=== PATIENT | female | born 1985 | race Caucasian/White ===

== ENCOUNTER → 2018-07-28 | Outpatient (REF) | payer SELFPAY ==
[2018-07-28 16:39] LABS: INFLUENZA A AMPLIFICATION NEGATIVE (NEGATIVE); INFLUENZA B AMPLIFICATION NEGATIVE (NEGATIVE)
== END ==
LOC: M LAB REF 15:34
PROVIDERS: ATTEND Physician Assistant
DX: J11.1 Influenza due to unidentified influenza virus with other respiratory manifestations (principal)

== ENCOUNTER → 2021-04-16 | Outpatient (REF) | payer SELFPAY ==
[~2021-04-16] MED LIST: CLAR10CA3 PO; COLA100C5 PO; IBUP-1022 PO; OMEP10CASR PO; PERC5TAB12 PO; PRENTAB9 PO
[2021-04-16 17:00] LABS: HEMOGLOBIN 13.4 g/dl (12.0-15.5); MEAN CORPUSCULAR HEMOGLOBIN 30.6 pg (27.0-33.0); MEAN CORPUSCULAR HGB CONC 34.4 g/dl (32.0-36.5); PLATELET COUNT, AUTOMATED 262 10^3/uL (150-450); RED BLOOD COUNT 4.38 10^6/uL (4.00-5.40)
[2021-04-16 18:22] LABS: HCG, SERUM QUANTITATIVE 17527 MIU/ML; HEPATITIS C VIRUS ABY INDEX 0.1 INDEX (<0.8); HIV 1&2 SCREEN CENTAUR NEGATIVE (NEGATIVE)
[2021-04-16 20:16] LABS: HEMOGLOBIN A1c 5.5 %
== END ==
LOC: M LAB REF 16:36
PROVIDERS: ATTEND Advanced Practice Midwife
DX: O36.80X0 Pregnancy with inconclusive fetal viability, not applicable or unspecified (principal); Z32.01 Encounter for pregnancy test, result positive; Z3A.00 Weeks of gestation of pregnancy not specified

== ENCOUNTER → 2021-04-23 | Outpatient (CLI) | payer MEDICAID ==
[2021-04-23 17:12] LABS: BASO # 0.1 10^3/uL (0.0-0.2); BASO % 0.3 % (0.0-1.0); EOS # 0.3 10^3/uL (0.0-0.5); HEMATOCRIT 37.1 % (36.0-47.0); HEMOGLOBIN 12.4 g/dl (12.0-15.5); LYMPH % 13.5 % (24.0-44.0); MEAN CORPUSCULAR HEMOGLOBIN 30.5 pg (27.0-33.0); MEAN CORPUSCULAR HGB CONC 33.4 g/dl (32.0-36.5); MEAN CORPUSCULAR VOLUME 91.4 fl (80.0-96.0); MONO # 0.8 10^3/uL (0.0-0.8); MONO % 5.5 % (2.0-8.0); NEUTROPHILS # 11.7 10^3/uL (1.5-8.5); NEUTROPHILS % 77.6 % (36.0-66.0); PLATELET COUNT, AUTOMATED 250 10^3/uL (150-450); RED BLOOD COUNT 4.06 10^6/uL (4.00-5.40); WHITE BLOOD COUNT 15.1 10^3/uL (4.0-10.0)
== END ==
LOC: M LAB 15:25
PROVIDERS: ATTEND Advanced Practice Midwife
DX: Z34.03 Encounter for supervision of normal first pregnancy, third trimester (principal); Z3A.00 Weeks of gestation of pregnancy not specified

== ENCOUNTER → 2021-05-07 | Outpatient (REF) | payer MEDICAID | LOC: M LAB REF 16:36 | PROVIDERS: ATTEND Advanced Practice Midwife | DX: Z34.83 Encounter for supervision of other normal pregnancy, third trimester (principal); Z3A.00 Weeks of gestation of pregnancy not specified ==

== ENCOUNTER 2021-05-15 16:44 | Outpatient (CLI) | payer MEDICAID ==
[~2021-05-15] VITALS: Ht 167.6 cm; Wt 115.1 kg
[2021-05-15] MEDS ORDERED: PRENTAB9 PO (16:55)
[2021-05-15] MEDS ORDERED: CLAR10CA3 PO (16:55)
[2021-05-15 17:04] VITALS: BP 116/59
[2021-05-15 17:28] VITALS: BP 139/73
[2021-05-15 17:45] VITALS: BP 132/66
[2021-05-15 17:58] LABS: HEMATOCRIT 37.6 % (36.0-47.0); HEMOGLOBIN 13.1 g/dl (12.0-15.5); MEAN CORPUSCULAR HEMOGLOBIN 31.1 pg (27.0-33.0); MEAN CORPUSCULAR HGB CONC 34.8 g/dl (32.0-36.5); MEAN CORPUSCULAR VOLUME 89.3 fl (80.0-96.0); PLATELET COUNT, AUTOMATED 226 10^3/uL (150-450); RED BLOOD COUNT 4.21 10^6/uL (4.00-5.40); WHITE BLOOD COUNT 15.2 10^3/uL (4.0-10.0)
[2021-05-15 18:21] LABS: CREATININE,RANDOM URINE 77.1 MG/DL; TOTAL PROTEIN,RANDOM URINE 12.9 MG/DL (0.0-12.0)
[2021-05-15 18:24] LABS: ALT/SGPT 23 U/L (12-78); BILIRUBIN,TOTAL 0.2 MG/DL (0.2-1.0); CREATININE FOR GFR 0.39 MG/DL (0.55-1.30); GLOMERULAR FILTRATION RATE > 60.0 (>60); LDH LACTATE DEHYDROGENASE 166 U/L (84-246); URIC ACID 3.3 MG/DL (2.6-6.0)
--- NOTE | 2021-05-15 19:16 | IPN ---
PROGRESS NOTE DATE: 05/15/2021 SUBJECTIVE: Gi is a 36-year-old, 1, para 0, at 40 and 3/7 weeks gestation, EDC of 05/12/21 based on LMP and third trimester ultrasound. She presents to labor and delivery following a routine visit in the office at [facility] where she was noted to have mildly elevated blood pressure and was sent here for further evaluation. She denies headache, visual disturbances, epigastric pain or right upper quadrant discomfort. She denies contractions, vaginal bleeding and leakage of fluid. The fetus has been active. Her care was initiated in the third trimester at [facility]. complicated by advanced maternal age and late to care. PAST MEDICAL HISTORY: Childhood varicella. PAST SURGICAL HISTORY: None. FAMILY HISTORY: COPD, psychiatric diagnoses. SOCIAL HISTORY: The patient is . She is a homemaker. She is a former smoker. She denies alcohol and drug use. No history of any sexually transmitted infections. She denies history of abuse. ALLERGIES: Amoxicillin and Robitussin. CURRENT MEDICATIONS: vitamin, Claritin and occasional [id number] antiacid medications. OBSTETRIC LABS: B positive, antibody screen negative, rubella immune, VDRL nonreactive. Urine culture: No growth. Hep B surface antigen negative. HIV negative and hep C nonreactive. She is GBS positive. Her gestational diabetic screening was 139. She did not have any noninvasive testing done. OBJECTIVE: Temperature 98.4, pulse 79, BP 116/59, 139/73, 132/66. The heart rate is 135 with moderate variability, positive accelerations, no decelerations. There is no pattern of contractions. I did perform a CBC that returned a hemoglobin of 13.1, hematocrit 37.6 and platelets 226. Her preeclamptic labs are normal. Her creatinine is 0.39, AST 17, ALT 23, LDH 166 and uric acid is 3.3. Her spot urine is 0.17. ASSESSMENT: Intrauterine at 40 and 3/7 weeks, heart rate category 1. Normotensive BPs, no evidence of gestational hypertension or preeclampsia at this time. Advanced maternal age. PLAN: Discharge the patient home. I have scheduled her for induction of labor at 41 weeks gestation. I have reviewed signs and symptoms of active labor, movement counts and danger signs. I have reviewed risks, benefits and alternatives to induction of labor today versus 41 weeks. The patient is requesting the opportunity to go into labor spontaneously and declines induction of labor today.
== END 2021-05-15 18:40 | disposition home or self-care (01) ==
LOC: M LDO 16:44
PROVIDERS: ATTEND Advanced Practice Midwife
DX: O26.893 Other specified pregnancy related conditions, third trimester (principal); O09.513 Supervision of elderly primigravida, third trimester; Z3A.40 40 weeks gestation of pregnancy

== ENCOUNTER 2021-05-19 08:29 | Inpatient (IN) | payer OTHER ==
[~2021-05-19] VITALS: Ht 167.6 cm; Wt 118.7 kg
[2021-05-19] VITALS (13 sets, daily range): BP systolic 108–142; BP diastolic 55–91
[~2021-05-19 08:29] MED LIST changes: -COLA100C5 PO; -IBUP-1022 PO; -OMEP10CASR PO; -PERC5TAB12 PO
[2021-05-19] MEDS ORDERED: OMEP10CASR PO (09:11)
[2021-05-19] MEDS ORDERED: HOME MED LIST COMPLETE! XX SCH (09:15)
[2021-05-19 09:53] LABS: HEMATOCRIT 35.5 % (36.0-47.0); HEMOGLOBIN 12.2 g/dl (12.0-15.5); MEAN CORPUSCULAR HEMOGLOBIN 31.2 pg (27.0-33.0); MEAN CORPUSCULAR HGB CONC 34.4 g/dl (32.0-36.5); MEAN CORPUSCULAR VOLUME 90.8 fl (80.0-96.0); PLATELET COUNT, AUTOMATED 225 10^3/uL (150-450); RED BLOOD COUNT 3.91 10^6/uL (4.00-5.40)
[2021-05-19] MEDS ORDERED: LR 1,000 ML IV PRN (10:45)
[2021-05-19] MEDS ORDERED: OXYTOCIN DRIP 30 UNITS in IV 1 EA IV PRN ×4 (10:45)
[2021-05-19] MEDS ORDERED: CARBOPROST TROMETHAMINE 250 MCG/ML AMP IM PRN (10:45)
[2021-05-19] MEDS ORDERED: miSOPROStol 50MCG 1/2 TABLET PO ONE ×2 (10:45→15:25)
[2021-05-19] MEDS ORDERED: TRANEXAMIC ACID INJection 1,000 MG in NS 100 ML IV PRN (10:45)
[2021-05-19] MEDS ORDERED: METHYLERGONOVINE MALEATE 0.2 MG/ML VIAL (J2210) IM PRN (10:45)
[2021-05-19] MEDS ORDERED: LACTATED RINGER'S 1000 ML IV PRN (10:45)
[2021-05-19] MEDS ORDERED: LR 1,000 ML IV ONE (11:05)
[2021-05-19 11:07] LABS: GC DNA AMPLIFICATION NEGATIVE (NEGATIVE)
[2021-05-19] MEDS ORDERED: OXYTOCIN DRIP 30 UNITS in IV 1 EA IV SCH (20:45)
[2021-05-19] MEDS ORDERED: CLINDAMYCIN 900 MG in IV 1 EA IV SCH (21:00)
[2021-05-19] MEDS ORDERED: AZITHROMYCIN INJ 500 MG, VIAL MATE ADAPTER 1 EACH in NS 250 ML IV ONE (21:55)
[2021-05-19] MEDS ORDERED: BICITRA 30ML SOLN UDC PO ONE (21:55)
[2021-05-19] MEDS ORDERED: GENTAMICIN 400 MG in D5W 50 ML IV ONE (22:15)
[2021-05-19] MEDS ORDERED: MORPHINE PRES-FREE INJ 10 MG/10 ML VIAL (J2274) As Ordered ONE (22:39)
[2021-05-19] MEDS ORDERED: diphenhydrAMINE 50MG/ML VIAL (J1200) IV PRN (22:55)
[2021-05-19] MEDS ORDERED: ONDANSETRON 4MG/2ML VIAL IV PRN (22:55)
[2021-05-19] MEDS ORDERED: NALBUPHINE HCL 10 MG/ML AMP (J2300) IV PRN (22:55)
[2021-05-19] MEDS ORDERED: METOCLOPRAMIDE INJ 10MG/2ML VIAL (J2765 PER 1) IV PRN (22:55)
[2021-05-19] MEDS ORDERED: NALOXONE INJ 0.4MG/1ML VIAL (J2310 PER 1MG) IV PRN ×2 (22:55)
[2021-05-19] MEDS ORDERED: ONDANSETRON 4MG/2ML VIAL As Ordered ONE (23:13)
[2021-05-19] MEDS ORDERED: ePHEDrine SULFATE 25 MG/5 ML(5MG/ML) SYRINGE As Ordered ONE (23:13)
[2021-05-19] MEDS ORDERED: PHENYLephrine 500MCG 5ML (100MCG/ML) SYRINGE As Ordered ONE (23:13)
[2021-05-19] MEDS ORDERED: dexameTHASONE 4 MG/ML 1ML VIAL (J1100 PER 1MG) As Ordered ONE (23:13)
[2021-05-19] MEDS ORDERED: KETOROLAC 60MG 2ML VIAL As Ordered ONE (23:25)
[2021-05-20] VITALS (9 sets, daily range): BP systolic 111–139; BP diastolic 57–85
[2021-05-20] MEDS ORDERED: ONDANSETRON 4MG/2ML VIAL IV PRN ×2 (00:30→00:40)
[2021-05-20] MEDS ORDERED: SIMETHICONE 80MG CHEW TAB PO PRN (00:30)
[2021-05-20] MEDS ORDERED: MEASLES,MUMPS,RUBELLA VACCINE INJ (MMR-II) (90707) SC SCH (00:30)
[2021-05-20] MEDS ORDERED: RHOGAM 300 MCG (1500 IU) INJ (J2790) IM SCH (00:30)
[2021-05-20] MEDS ORDERED: oxyCODONE 5MG TAB PO PRN ×3 (00:30→00:40)
[2021-05-20] MEDS ORDERED: OXYTOCIN DRIP 30 UNITS in IV 1 EA IV SCH (00:30)
[2021-05-20] MEDS ORDERED: DOCUSATE SODIUM 100MG CAPSULE PO PRN (00:30)
[2021-05-20] MEDS ORDERED: NALBUPHINE HCL 10 MG/ML AMP (J2300) IV PRN (00:40)
[2021-05-20] MEDS ORDERED: LR 1,000 ML IV SCH (00:40)
[2021-05-20] MEDS ORDERED: fentaNYL 100 MCG/2 ML INJECTION (J3010) IV PRN (00:40)
[2021-05-20] MEDS ORDERED: OXYTOCIN 30 UNITS IN 0.9% NaCl 500ML IV BAG (J2590) As Ordered ONE (00:44)
[2021-05-20 02:24] LABS: ALBUMIN 2.2 GM/DL (3.2-5.2); ALT/SGPT 18 U/L (12-78); BILIRUBIN,TOTAL 0.1 MG/DL (0.2-1.0); BLOOD UREA NITROGEN 6 MG/DL (7-18); CALCIUM LEVEL 7.9 MG/DL (8.5-10.1); CARBON DIOXIDE LEVEL 28 MEQ/L (21-32); CHLORIDE LEVEL 107 MEQ/L (98-107); GLOMERULAR FILTRATION RATE > 60.0 (>60); GLUCOSE, FASTING 85 MG/DL (70-100); POTASSIUM SERUM 4.4 MEQ/L (3.5-5.1); SODIUM LEVEL 142 MEQ/L (136-145); TOTAL PROTEIN 5.4 GM/DL (6.4-8.2)
[2021-05-20] MEDS: ACETAMINOPHEN 500 MG TAB PO SCH ×4 (03:46→21:25)
[2021-05-20] MEDS: KETOROLAC 30 MG/ML 1ML VIAL IV SCH ×3 (06:15→18:12)
[2021-05-20] MEDS: PRENATAL VITAMINS CHEWABLE TABLET PO SCH (08:25)
[2021-05-20] MEDS ORDERED: BOOSTRIX/ADACEL VACCINE (DIPHTH/PERTUSS/ACELL/TETANUS) 0.5ML SYR IM ONE (09:00)
[2021-05-20] MEDS ORDERED: INFLUENZA QUADRIVALENT PF VACCINE 0.5ML SYRINGE IM ONE (09:00)
[2021-05-20] MEDS: ENOXAPARIN 60MG/0.6ML SYRINGE (J1650 PER 10MG) SC SCH (12:02)
[2021-05-21] MEDS: ACETAMINOPHEN 500 MG TAB PO SCH ×4 (02:09→20:02)
[2021-05-21] MEDS: IBUPROFEN 600MG TAB PO SCH ×4 (02:11→20:01)
[2021-05-21 02:13] VITALS: BP 116/55
[2021-05-21 06:27] VITALS: BP 144/67
[2021-05-21 07:28] LABS: HEMATOCRIT 34.8 % (36.0-47.0); HEMOGLOBIN 11.8 g/dl (12.0-15.5); MEAN CORPUSCULAR HGB CONC 33.9 g/dl (32.0-36.5); MEAN CORPUSCULAR VOLUME 91.3 fl (80.0-96.0); PLATELET COUNT, AUTOMATED 207 10^3/uL (150-450); RED BLOOD COUNT 3.81 10^6/uL (4.00-5.40); WHITE BLOOD COUNT 10.5 10^3/uL (4.0-10.0)
[2021-05-21] MEDS: PRENATAL VITAMINS CHEWABLE TABLET PO SCH (07:30)
[2021-05-21 09:56] VITALS: BP 137/76
[2021-05-21] MEDS: ENOXAPARIN 60MG/0.6ML SYRINGE (J1650 PER 10MG) SC SCH (11:46)
[2021-05-21] MEDS ORDERED: NICOTINE 14 MG/24 HR TRANSDERMAL TD PRN (13:00)
[2021-05-21 14:00] VITALS: BP 145/73
[2021-05-21 17:55] VITALS: BP 133/66
[2021-05-22] MEDS: IBUPROFEN 600MG TAB PO SCH ×2 (02:08→08:11)
[2021-05-22] MEDS: ACETAMINOPHEN 500 MG TAB PO SCH ×2 (02:08→08:10)
[2021-05-22 06:00] VITALS: BP 134/79
[2021-05-22] MEDS: PRENATAL VITAMINS CHEWABLE TABLET PO SCH (08:10)
[2021-05-22] MEDS ORDERED: COLA100C5 PO (10:51)
[2021-05-22] MEDS ORDERED: IBUP-1022 PO (10:51)
[2021-05-22] MEDS ORDERED: PERC5TAB12 PO (10:51)
[2021-05-22] MEDS: ENOXAPARIN 60MG/0.6ML SYRINGE (J1650 PER 10MG) SC SCH (12:04)
== END 2021-05-22 13:30 | disposition home or self-care (01) | DRG 540 ==
LOC: M LDI 08:29 → M OBS 05-20 02:13
PROVIDERS: ADMIT Obstetrics & Gynecology; ATTEND Obstetrics & Gynecology
PROC: 10D00Z1 Extraction of Products of Conception, Low, Open Approach (ICD-10-PCS; principal; 2021-05-19 22:42)
DX: O48.0 Post-term pregnancy (principal); Z37.0 Single live birth; Z3A.41 41 weeks gestation of pregnancy; E66.9 Obesity, unspecified; Z68.41 Body mass index [BMI] 40.0-44.9, adult; O99.214 Obesity complicating childbirth; Z88.8 Allergy status to other drugs, medicaments and biological substances; O09.523 Supervision of elderly multigravida, third trimester; O76 Abnormality in fetal heart rate and rhythm complicating labor and delivery; O77.0 Labor and delivery complicated by meconium in amniotic fluid

== ENCOUNTER → 2021-12-04 | Outpatient (CLI) | payer OTHER ==
[~2021-12-04] MED LIST changes: +COLA100C5 PO; +IBUP-1022 PO; +OMEP10CASR PO; +PERC5TAB12 PO
== END ==
LOC: M WHC 14:46
PROVIDERS: ATTEND Obstetrics & Gynecology
DX: Z53.9 Procedure and treatment not carried out, unspecified reason (principal)

== ENCOUNTER → 2021-12-26 | Outpatient (CLI) | payer OTHER | LOC: M RAD 15:59 | PROVIDERS: ATTEND Obstetrics & Gynecology | DX: Z34.92 Encounter for supervision of normal pregnancy, unspecified, second trimester (principal); Z3A.20 20 weeks gestation of pregnancy ==

== ENCOUNTER → 2022-01-02 | Outpatient (CLI) | payer OTHER | LOC: M LAB 14:26 | PROVIDERS: ATTEND Obstetrics & Gynecology | DX: Z53.9 Procedure and treatment not carried out, unspecified reason (principal) ==

== ENCOUNTER → 2022-01-11 | Outpatient (CLI) | payer OTHER ==
[2022-01-11 15:31] LABS: HEMATOCRIT 36.4 % (36.0-47.0); HEMOGLOBIN 12.8 g/dl (12.0-15.5); MEAN CORPUSCULAR HEMOGLOBIN 31.5 pg (27.0-33.0); MEAN CORPUSCULAR HGB CONC 35.2 g/dl (32.0-36.5); MEAN CORPUSCULAR VOLUME 89.7 fl (80.0-96.0); PLATELET COUNT, AUTOMATED 222 10^3/uL (150-450); RED BLOOD COUNT 4.06 10^6/uL (4.00-5.40); WHITE BLOOD COUNT 14.4 10^3/uL (4.0-10.0)
[2022-01-11 16:13] LABS: ALBUMIN 2.9 GM/DL (3.2-5.2); ALT/SGPT 15 U/L (12-78); BILIRUBIN,TOTAL 0.1 MG/DL (0.2-1.0); BLOOD UREA NITROGEN 6 MG/DL (7-18); CALCIUM LEVEL 9.2 MG/DL (8.5-10.1); CARBON DIOXIDE LEVEL 23 MEQ/L (21-32); CHLORIDE LEVEL 106 MEQ/L (98-107); CREATININE FOR GFR 0.39 MG/DL (0.55-1.30); GLOMERULAR FILTRATION RATE > 60.0 (>60); GLUCOSE, FASTING 90 MG/DL (70-100); POTASSIUM SERUM 3.9 MEQ/L (3.5-5.1); SODIUM LEVEL 136 MEQ/L (136-145); TOTAL PROTEIN 6.4 GM/DL (6.4-8.2)
[2022-01-11 21:16] LABS: GC DNA AMPLIFICATION NEGATIVE (NEGATIVE)
[2022-01-13 12:32] LABS: HIV 1&2 SCREEN CENTAUR NEGATIVE (NEGATIVE)
== END ==
LOC: M LAB 14:36
PROVIDERS: ATTEND Obstetrics & Gynecology
DX: Z34.92 Encounter for supervision of normal pregnancy, unspecified, second trimester (principal); Z3A.16 16 weeks gestation of pregnancy

== ENCOUNTER → 2022-03-14 | Outpatient (CLI) | payer OTHER | LOC: M WHC 13:06 | PROVIDERS: ATTEND Obstetrics & Gynecology | DX: Z36.2 Encounter for other antenatal screening follow-up (principal) ==

== ENCOUNTER 2022-04-22 15:25 | Outpatient (CLI) | payer OTHER ==
[~2022-04-22] VITALS: Ht 165.1 cm; Wt 123.1 kg
[~2022-04-22 15:25] MED LIST changes: -ASPI81CH33 PO
[2022-04-22 15:50] VITALS: BP 124/80
[2022-04-22] MEDS ORDERED: ASPI81CH33 PO (15:55)
[2022-04-22] MEDS ORDERED: PRENTAB9 PO (15:55)
[2022-04-22] MEDS ORDERED: HOME MED LIST COMPLETE! XX SCH (16:00)
[2022-04-22 17:58] VITALS: BP 131/69
== END 2022-04-22 18:00 | disposition home or self-care (01) ==
LOC: M LDO 15:25
PROVIDERS: ATTEND Obstetrics & Gynecology
DX: O36.8139 Decreased fetal movements, third trimester, other fetus (principal); O43.193 Other malformation of placenta, third trimester; O34.219 Maternal care for unspecified type scar from previous cesarean delivery; O09.513 Supervision of elderly primigravida, third trimester; Z3A.35 35 weeks gestation of pregnancy

== ENCOUNTER → 2022-04-22 | Outpatient (REF) | payer OTHER ==
[~2022-04-22] MED LIST changes: +ASPI81CH33 PO
== END ==
LOC: M PLALAB 14:28
PROVIDERS: ATTEND Obstetrics & Gynecology
DX: Z34.93 Encounter for supervision of normal pregnancy, unspecified, third trimester (principal); Z3A.00 Weeks of gestation of pregnancy not specified

== ENCOUNTER → 2022-04-24 | Outpatient (CLI) | payer OTHER ==
[~2022-04-24] MED LIST changes: +ASPI81CH33 PO
== END ==
LOC: M WHC 07:25
PROVIDERS: ATTEND Obstetrics & Gynecology
DX: O43.193 Other malformation of placenta, third trimester (principal); Z3A.37 37 weeks gestation of pregnancy

== ENCOUNTER → 2022-05-01 | Outpatient (CLI) | payer OTHER | LOC: M WHC 08:19 | PROVIDERS: ATTEND Obstetrics & Gynecology | DX: O43.193 Other malformation of placenta, third trimester (principal); Z3A.30 30 weeks gestation of pregnancy ==

== ENCOUNTER → 2022-05-14 | Outpatient (CLI) | payer OTHER ==
[~2022-05-14] MED LIST changes: +OMEP40CA5 PO
== END ==
LOC: M LABSMTC 09:06
PROVIDERS: ATTEND Anesthesiology
DX: Z01.818 Encounter for other preprocedural examination (principal)

== ENCOUNTER 2022-05-15 05:52 | Inpatient (IN) | payer OTHER ==
[~2022-05-15] VITALS: Ht 167.6 cm; Wt 124.1 kg
[2022-05-15] VITALS (8 sets, daily range): BP systolic 125–163; BP diastolic 67–78
[2022-05-15] MEDS ORDERED: LACTATED RINGER'S 1000 ML IV STA (06:04)
[2022-05-15] MEDS ORDERED: BICITRA 30ML SOLN UDC PO ONE ×2 (06:05→07:00)
[2022-05-15 06:41] LABS: HEMATOCRIT 37.2 % (36.0-47.0); HEMOGLOBIN 12.7 g/dl (12.0-15.5); MEAN CORPUSCULAR HEMOGLOBIN 29.8 pg (27.0-33.0); MEAN CORPUSCULAR HGB CONC 34.1 g/dl (32.0-36.5); MEAN CORPUSCULAR VOLUME 87.3 fl (80.0-96.0); PLATELET COUNT, AUTOMATED 251 10^3/uL (150-450); RED BLOOD COUNT 4.26 10^6/uL (4.00-5.40); WHITE BLOOD COUNT 12.7 10^3/uL (4.0-10.0)
[2022-05-15] MEDS ORDERED: LR 1,000 ML IV SCH ×2 (06:55→07:30)
[2022-05-15] MEDS ORDERED: LACTATED RINGER'S 1000 ML IV ONE (07:00)
[2022-05-15] MEDS ORDERED: CLINDAMYCIN 900 MG in IV 1 EA IV ONE (07:00)
[2022-05-15] MEDS ORDERED: **NOTE PATIENT COMMENT** MISC XX SCH (07:30)
[2022-05-15] MEDS ORDERED: MEPERIDINE INJ 25 MG/ML VIAL IV PRN (07:30)
[2022-05-15] MEDS ORDERED: diphenhydrAMINE 50MG/ML VIAL IV PRN (07:30)
[2022-05-15] MEDS ORDERED: METOCLOPRAMIDE INJ 10MG/2ML VIAL IV PRN ×2 (07:30)
[2022-05-15] MEDS ORDERED: oxyCODONE 5MG TAB PO PRN ×2 (07:30→10:20)
[2022-05-15] MEDS ORDERED: NALOXONE INJ 0.4MG/1ML VIAL IV PRN ×2 (07:30)
[2022-05-15] MEDS ORDERED: SLF 3 ML SYR IV SCH (07:30)
[2022-05-15] MEDS ORDERED: ONDANSETRON 4MG 2ML VIAL IV PRN ×2 (07:30→10:20)
[2022-05-15] MEDS ORDERED: fentaNYL 100 MCG/2 ML INJECTION IV PRN (07:30)
[2022-05-15] MEDS ORDERED: GENTAMICIN 400 MG in D5W 100 ML IV ONE (08:00)
[2022-05-15] MEDS ORDERED: METOCLOPRAMIDE INJ 10MG/2ML VIAL As Ordered ONE (09:47)
[2022-05-15] MEDS ORDERED: ROCURONIUM BROMIDE 50MG/5ML VIAL As Ordered ONE (09:47)
[2022-05-15] MEDS ORDERED: LIDOCAINE 2% W/EPINEPHRINE 20ML VIAL **PRES FREE As Ordered ONE (09:47)
[2022-05-15] MEDS ORDERED: OXYTOCIN 30UNITS IN 0.9% NaCl 500ML IV BAG As Ordered ONE (09:47)
[2022-05-15] MEDS ORDERED: ACETAMINOPHEN 1000MG 100ML IV BAG As Ordered ONE (09:47)
[2022-05-15] MEDS ORDERED: MORPHINE PRES-FREE INJ 10 MG/10 ML VIAL As Ordered ONE (09:47)
[2022-05-15] MEDS ORDERED: ONDANSETRON 4MG 2ML VIAL As Ordered ONE (09:47)
[2022-05-15] MEDS ORDERED: fentaNYL 100 MCG/2 ML INJECTION As Ordered ONE (09:47)
[2022-05-15] MEDS ORDERED: SUGAMMADEX SODIUM 500 MG/5 ML VIAL (BRIDION) As Ordered ONE (09:47)
[2022-05-15] MEDS ORDERED: MIDAZOLAM INJ 2MG/2ML VIAL (J2250 PER 1MG) As Ordered ONE (09:47)
[2022-05-15] MEDS ORDERED: KETOROLAC 60MG 2ML VIAL As Ordered ONE (09:47)
[2022-05-15] MEDS ORDERED: SODIUM BICARBONATE 8.4% INJ 50MEQ 50ML VIAL As Ordered ONE (09:47)
[2022-05-15] MEDS ORDERED: BUPIVACAINE HCL 0.25% 10ML VIAL INFIL PRN (10:00)
[2022-05-15] MEDS ORDERED: PROMETHAZINE 25 MG TAB PO PRN (10:20)
[2022-05-15] MEDS ORDERED: DOCUSATE SODIUM 100MG CAPSULE PO PRN (10:20)
[2022-05-15] MEDS ORDERED: RHOGAM 300MCG (1500IU) INJ IM SCH (10:20)
[2022-05-15] MEDS ORDERED: OXYTOCIN DRIP 30 UNITS in IV 1 EA IV SCH (10:20)
[2022-05-15] MEDS ORDERED: SIMETHICONE 80MG CHEW TAB PO PRN (10:20)
[2022-05-15] MEDS: ACETAMINOPHEN 500 MG TAB PO SCH ×3 (11:46→22:03)
[2022-05-15] MEDS: KETOROLAC 30 MG/ML 1ML VIAL IV SCH ×2 (17:09→22:04)
[2022-05-15] MEDS: ENOXAPARIN 40MG/0.4ML SYRINGE (J1650 PER 10MG) SC SCH (20:02)
[2022-05-15] MEDS ORDERED: ENOXAPARIN 30MG/0.3ML SYRINGE (J1650 PER 10MG) SC SCH (21:00)
[2022-05-16 02:00] VITALS: BP 156/74
[2022-05-16] MEDS: KETOROLAC 30 MG/ML 1ML VIAL IV SCH (03:10)
[2022-05-16] MEDS: ACETAMINOPHEN 500 MG TAB PO SCH ×4 (04:29→22:20)
[2022-05-16] MEDS: oxyCODONE 5MG TAB PO PRN ×3 (04:54→17:40)
[2022-05-16 06:00] VITALS: BP 134/62
[2022-05-16 06:51] LABS: HEMATOCRIT 27.8 % (36.0-47.0); MEAN CORPUSCULAR HEMOGLOBIN 29.5 pg (27.0-33.0); MEAN CORPUSCULAR HGB CONC 33.1 g/dl (32.0-36.5); MEAN CORPUSCULAR VOLUME 89.1 fl (80.0-96.0); PLATELET COUNT, AUTOMATED 203 10^3/uL (150-450); RED BLOOD COUNT 3.12 10^6/uL (4.00-5.40); WHITE BLOOD COUNT 12.4 10^3/uL (4.0-10.0)
[2022-05-16 07:05] LABS: HEMOGLOBIN 9.2 g/dl (12.0-15.5)
[2022-05-16 08:12] LABS: CREATININE FOR GFR 0.54 MG/DL (0.55-1.30); GLOMERULAR FILTRATION RATE > 60.0 (>60)
[2022-05-16] MEDS: IBUPROFEN 600MG TAB PO SCH ×3 (09:16→22:38)
[2022-05-16] MEDS: PRENATAL VITAMINS CHEWABLE TABLET PO SCH (09:16)
[2022-05-16] MEDS: ENOXAPARIN 40MG/0.4ML SYRINGE (J1650 PER 10MG) SC SCH ×2 (09:16→22:52)
[2022-05-16 10:00] VITALS: BP 148/69
[2022-05-16 14:00] VITALS: BP 131/66
[2022-05-16 18:00] VITALS: BP 138/79
[2022-05-16 22:00] VITALS: BP 135/72
[2022-05-17 02:00] VITALS: BP 127/64
[2022-05-17] MEDS: IBUPROFEN 600MG TAB PO SCH ×2 (04:15→09:47)
[2022-05-17] MEDS: ACETAMINOPHEN 500 MG TAB PO SCH ×2 (04:20→09:48)
[2022-05-17] MEDS: oxyCODONE 5MG TAB PO PRN (04:21)
[2022-05-17 06:00] VITALS: BP 136/76
[2022-05-17] MEDS ORDERED: MEASLES,MUMPS,RUBELLA VACCINE INJ (MMR-II) SC.IMMUN ONE (09:00)
[2022-05-17] MEDS: PRENATAL VITAMINS CHEWABLE TABLET PO SCH (09:47)
[2022-05-17] MEDS: ENOXAPARIN 40MG/0.4ML SYRINGE (J1650 PER 10MG) SC SCH (09:47)
[2022-05-17 10:00] VITALS: BP 132/61
[2022-05-17] MEDS ORDERED: OXYC1TAB23 PO (10:26)
[2022-05-17] MEDS ORDERED: IBUP1TAB7 PO (10:26)
== END 2022-05-17 15:00 | disposition home or self-care (01) | DRG 540 ==
LOC: M LDI 05:52 → M OBS 11:15
PROVIDERS: ADMIT Obstetrics & Gynecology; ATTEND Obstetrics & Gynecology
PROC: 10D07Z6 Extraction of Products of Conception, Vacuum, Via Natural or Artificial Opening (ICD-10-PCS; 2022-05-15)
PROC: 0UB70ZZ Excision of Bilateral Fallopian Tubes, Open Approach (ICD-10-PCS; 2022-05-15)
PROC: 10D00Z1 Extraction of Products of Conception, Low, Open Approach (ICD-10-PCS; principal; 2022-05-15 07:30)
DX: O34.211 Maternal care for low transverse scar from previous cesarean delivery (principal); O09.523 Supervision of elderly multigravida, third trimester; Z37.0 Single live birth; Z79.899 Other long term (current) drug therapy; Z88.0 Allergy status to penicillin; Z30.2 Encounter for sterilization; Z3A.39 39 weeks gestation of pregnancy

== ENCOUNTER → 2022-07-11 | Outpatient (REF) | payer OTHER ==
[~2022-07-11] MED LIST changes: +IBUP1TAB7 PO; +OXYC1TAB23 PO
[2022-07-11 16:37] LABS: BASO # 0.1 10^3/uL (0.0-0.2); BASO % 0.6 % (0.0-1.0); EOS # 1.1 10^3/uL (0.0-0.5); EOS % 11.2 % (0.0-3.0); HEMATOCRIT 36.9 % (36.0-47.0); HEMOGLOBIN 11.1 g/dl (12.0-15.5); LYMPH # 2.3 10^3/uL (1.5-5.0); LYMPH % 25.1 % (24.0-44.0); MEAN CORPUSCULAR HEMOGLOBIN 25.3 pg (27.0-33.0); MEAN CORPUSCULAR HGB CONC 30.1 g/dl (32.0-36.5); MEAN CORPUSCULAR VOLUME 84.2 fl (80.0-96.0); MONO # 0.7 10^3/uL (0.0-0.8); MONO % 7.2 % (2.0-8.0); NEUTROPHILS # 5.2 10^3/uL (1.5-8.5); NEUTROPHILS % 55.6 % (36.0-66.0); PLATELET COUNT, AUTOMATED 355 10^3/uL (150-450); RED BLOOD COUNT 4.38 10^6/uL (4.00-5.40); WHITE BLOOD COUNT 9.3 10^3/uL (4.0-10.0)
[2022-07-11 16:58] LABS: ALBUMIN 3.2 G/DL (3.2-5.2); ALKALINE PHOSPHATASE 142 U/L (46-116); ALT/SGPT 45 U/L (7.0-40); AST/SGOT 32 U/L (<34); BILIRUBIN,TOTAL 0.2 MG/DL (0.3-1.2); BLOOD UREA NITROGEN 10 MG/DL (9-23); CALCIUM LEVEL 9.3 MG/DL (8.5-10.1); CARBON DIOXIDE LEVEL 26 MMOL/L (20-31); CHLORIDE LEVEL 103 MMOL/L (98-107); CHOLESTEROL LEVEL 211 MG/DL (<200); CHOLESTEROL RISK RATIO 5.56 (<5); CREATININE FOR GFR 0.63 MG/DL (0.55-1.30); GLOMERULAR FILTRATION RATE > 60.0 (>60); GLUCOSE, FASTING 96 MG/DL (60-100); HDL CHOLESTEROL 37.9 MG/DL (>40); LDL CHOLESTEROL 119.1 MG/DL (<100); NON-HDL-C 173 MG/DL; POTASSIUM SERUM 4.2 MMOL/L (3.5-5.1); SODIUM LEVEL 137 MMOL/L (136-145); THYROID STIMULATING HORMONE 2.486 uIU/ML (0.55-4.78); TOTAL PROTEIN 6.5 G/DL (5.7-8.2); TRIGLYCERIDES LEVEL 270 MG/DL (<150)
[2022-07-11 17:01] LABS: HEMOGLOBIN A1c 5.3 % (4.0-6.0)
== END ==
LOC: M LAB REF 16:09
PROVIDERS: ATTEND Nurse Practitioner Family
DX: Z68.41 Body mass index [BMI] 40.0-44.9, adult (principal)

== ENCOUNTER → 2022-12-22 | Outpatient (CLI) | payer OTHER | LOC: M RAD 10:06 | PROVIDERS: ATTEND Nurse Practitioner Family | DX: M79.605 Pain in left leg (principal); I82.402 Acute embolism and thrombosis of unspecified deep veins of left lower extremity ==

== ENCOUNTER → 2023-01-13 | Outpatient (CLI) | payer OTHER ==
[2023-01-13 13:46] LABS: BASO # 0.1 10^3/uL (0.0-0.2); BASO % 0.6 % (0.0-1.0); EOS # 0.5 10^3/uL (0.0-0.5); EOS % 4.6 % (0.0-3.0); HEMOGLOBIN 13.6 g/dl (12.0-15.5); LYMPH # 1.9 10^3/uL (1.5-5.0); LYMPH % 19.5 % (24.0-44.0); MEAN CORPUSCULAR HEMOGLOBIN 28.7 pg (27.0-33.0); MEAN CORPUSCULAR HGB CONC 32.4 g/dl (32.0-36.5); MEAN CORPUSCULAR VOLUME 88.6 fl (80.0-96.0); MONO # 0.7 10^3/uL (0.0-0.8); MONO % 7.3 % (2.0-8.0); NEUTROPHILS # 6.7 10^3/uL (1.5-8.5); NEUTROPHILS % 67.6 % (36.0-66.0); PLATELET COUNT, AUTOMATED 305 10^3/uL (150-450); RED BLOOD COUNT 4.74 10^6/uL (4.00-5.40); WHITE BLOOD COUNT 9.9 10^3/uL (4.0-10.0)
== END ==
LOC: M PLALAB 11:50
PROVIDERS: ATTEND Internal Medicine Hematology
DX: I82.539 Chronic embolism and thrombosis of unspecified popliteal vein (principal)

== ENCOUNTER → 2023-08-31 | Outpatient (REF) | payer OTHER ==
[2023-08-31 19:14] LABS: ALBUMIN 3.1 G/DL (3.2-5.2); ALKALINE PHOSPHATASE 98 U/L (46-116); ALT/SGPT 21 U/L (7.0-40); AST/SGOT 16 U/L (<34); BILIRUBIN,DIRECT < 0.1 MG/DL (<0.4); BILIRUBIN,TOTAL 0.2 MG/DL (0.3-1.2); MAGNESIUM LEVEL 1.6 MG/DL (1.8-2.4); TOTAL PROTEIN 6.4 G/DL (5.7-8.2)
[2023-08-31 19:17] LABS: VITAMIN B12 LEVEL 879 PG/ML (211-911)
[2023-08-31 19:20] LABS: FOLATE 11.5 NG/ML (>5.4)
== END ==
LOC: M LAB REF 18:19
PROVIDERS: ATTEND Nurse Practitioner Family
DX: R74.01 Elevation of levels of liver transaminase levels (principal); R25.2 Cramp and spasm; R20.2 Paresthesia of skin

== ENCOUNTER 2024-07-02 12:21 | Inpatient (IN) | payer MEDICAID, OTHER ==
[~2024-07-02] VITALS: Ht 170.2 cm; Wt 108.9 kg
[2024-07-02] MEDS ORDERED: MAGN400T35 PO (13:05)
[2024-07-02 13:26] LABS: HEMOGLOBIN 15.4 g/dl (12.0-15.5); MEAN CORPUSCULAR HEMOGLOBIN 31.2 pg (27.0-33.0); MEAN CORPUSCULAR HGB CONC 34.2 g/dl (32.0-36.5); MEAN CORPUSCULAR VOLUME 91.1 fl (80.0-96.0); PLATELET COUNT, AUTOMATED 361 10^3/uL (150-450); RED BLOOD COUNT 4.94 10^6/uL (4.00-5.40); WHITE BLOOD COUNT 9.8 10^3/uL (4.0-10.0)
[2024-07-02 13:55] LABS: AMPHETAMINES LEVEL URINE NEGATIVE (NEGATIVE); BARBITURATES URINE NEGATIVE (NEGATIVE); BENZODIAZEPINES URINE NEGATIVE (NEGATIVE); CANNABINOIDS URINE NEGATIVE (NEGATIVE); COCAINE METABOLITE URINE NEGATIVE (NEGATIVE); METHADONE URINE NEGATIVE (NEGATIVE); OPIATES URINE NEGATIVE (NEGATIVE); PHENCYCLIDINE URINE NEGATIVE (NEGATIVE)
[2024-07-02 13:58] LABS: ETHYL ALCOHOL (ETHANOL) < 0.003 % (0.000-0.010)
[2024-07-02 13:59] LABS: ALKALINE PHOSPHATASE 127 U/L (35-104); ALT/SGPT 23 U/L (7.0-40); AST/SGOT 19 U/L (<34); BILIRUBIN,DIRECT 0.1 MG/DL (<0.4); BILIRUBIN,TOTAL 0.3 MG/DL (0.3-1.2); BLOOD UREA NITROGEN 8 MG/DL (9-23); CALCIUM LEVEL 9.3 MG/DL (8.5-10.1); CARBON DIOXIDE LEVEL 27 MMOL/L (20-31); CHLORIDE LEVEL 102 MMOL/L (98-107); CREATININE FOR GFR 0.57 MG/DL (0.55-1.30); GLOMERULAR FILTRATION RATE > 60.0 (>58); GLUCOSE, FASTING 113 MG/DL (60-100); POTASSIUM SERUM 4.1 MMOL/L (3.5-5.1); SALICYLATE LEVEL < 3.0 MG/DL (<30); SODIUM LEVEL 140 MMOL/L (136-145); TOTAL PROTEIN 7.8 G/DL (5.7-8.2)
[2024-07-02 14:02] LABS: THYROID STIMULATING HORMONE 2.835 uIU/ML (0.55-4.78)
[2024-07-02 14:05] LABS: HCG, SERUM QUALITATIVE NEGATIVE (NEGATIVE)
[2024-07-02] MEDS ORDERED: IBUP1TAB7 PO (17:10)
[2024-07-02] MEDS ORDERED: HOME MED LIST COMPLETE! XX SCH (17:10)
[2024-07-02] MEDS ORDERED: ASPI81TA26 PO (17:10)
[2024-07-02] MEDS ORDERED: ACET-897 PO (17:10)
[2024-07-02 17:55] VITALS: BP 143/84; TEMP 97.8; O2SAT 97
[2024-07-03] MEDS ORDERED: MOM 30ML SUSPENSION UDC PO PRN (02:05)
[2024-07-03] MEDS ORDERED: MAALOX 30 ML SUSP *UDC PO PRN (02:05)
[2024-07-03] MEDS ORDERED: traZODone 50 MG TAB PO PRN (02:05)
[2024-07-03] MEDS ORDERED: diphenhydrAMINE 25MG CAP PO PRN (02:05)
[2024-07-03] MEDS: ACETAMINOPHEN 325 MG TAB PO PRN (02:41)
[2024-07-03 06:25] VITALS: BP 138/77; TEMP 97.2; O2SAT 100
[2024-07-03] MEDS: FLUZONE VACCINE TRIVALENT PF(2024-25) 0.5ML SYRINGE IM.IMMUN ONE (08:10)
[2024-07-03] MEDS: IBUPROFEN 400MG TAB PO PRN (09:35)
[2024-07-03] MEDS ORDERED: OLANZapine ORAL DISINTEGRATING TAB 5MG PO PRN (10:50)
[2024-07-03] MEDS: MAGNESIUM OXIDE 400MG TAB (MAG-OX) PO SCH (11:18)
[2024-07-03] MEDS: PARoxetine 20MG TABLET PO SCH (11:18)
[2024-07-03] MEDS: LORATADINE 10 MG TAB PO SCH (11:18)
[2024-07-03] MEDS: ASPIRIN 81MG ENTERIC TABLET PO SCH (11:18)
[2024-07-03] MEDS: FUROSEMIDE 40 MG TAB PO ONE (14:01)
[2024-07-03] MEDS: metOLazone 2.5 MG TAB PO ONE (14:01)
[2024-07-03 16:20] VITALS: BP 129/81; TEMP 98.7; O2SAT 97
[2024-07-03 19:19] LABS: BLOOD UREA NITROGEN 10 MG/DL (9-23); CALCIUM LEVEL 9.2 MG/DL (8.5-10.1); CARBON DIOXIDE LEVEL 29 MMOL/L (20-31); CHLORIDE LEVEL 102 MMOL/L (98-107); CREATININE FOR GFR 0.65 MG/DL (0.55-1.30); GLOMERULAR FILTRATION RATE > 60.0 (>58); GLUCOSE, FASTING 113 MG/DL (60-100); MAGNESIUM LEVEL 1.8 MG/DL (1.8-2.4); POTASSIUM SERUM 4.2 MMOL/L (3.5-5.1); SODIUM LEVEL 141 MMOL/L (136-145)
[2024-07-04] MEDS: IBUPROFEN 800 MG TAB PO PRN (01:34)
[2024-07-04 06:58] VITALS: BP 148/70; TEMP 97.6; O2SAT 98
[2024-07-04 07:21] LABS: HEMOGLOBIN A1c 5.5 % (4.0-6.0)
[2024-07-04 07:35] LABS: BLOOD UREA NITROGEN 8 MG/DL (9-23); CALCIUM LEVEL 8.7 MG/DL (8.5-10.1); CARBON DIOXIDE LEVEL 30 MMOL/L (20-31); CHLORIDE LEVEL 104 MMOL/L (98-107); CHOLESTEROL LEVEL 167 MG/DL (<200); CHOLESTEROL RISK RATIO 4.07 (<5); CREATININE FOR GFR 0.75 MG/DL (0.55-1.30); GLOMERULAR FILTRATION RATE > 60.0 (>58); GLUCOSE, FASTING 100 MG/DL (60-100); LDL CHOLESTEROL 105.8 MG/DL (<100); MAGNESIUM LEVEL 1.8 MG/DL (1.8-2.4); POTASSIUM SERUM 4.2 MMOL/L (3.5-5.1); SODIUM LEVEL 142 MMOL/L (136-145); TRIGLYCERIDES LEVEL 101 MG/DL (<150)
[2024-07-04 16:34] VITALS: BP 147/71; TEMP 97.3; O2SAT 97
[2024-07-05 06:29] VITALS: BP 141/66; TEMP 97.9; O2SAT 100
[2024-07-05] MEDS ORDERED: PARO20TA3 PO (12:27)
== END 2024-07-05 13:30 | disposition home or self-care (01) | DRG 754 ==
LOC: M ED 12:21 → M ED INP 15:32 → M PSY 17:43
PROVIDERS: ADMIT Psychiatry & Neurology Psychiatry; ATTEND Psychiatry & Neurology Psychiatry
DX: F32.9 Major depressive disorder, single episode, unspecified (principal); D68.2 Hereditary deficiency of other clotting factors; F41.1 Generalized anxiety disorder; Z88.8 Allergy status to other drugs, medicaments and biological substances; Z88.0 Allergy status to penicillin; Z79.899 Other long term (current) drug therapy; Z79.82 Long term (current) use of aspirin; F17.200 Nicotine dependence, unspecified, uncomplicated; E66.9 Obesity, unspecified; I10 Essential (primary) hypertension; Z86.718 Personal history of other venous thrombosis and embolism

== ENCOUNTER → 2024-07-27 | Outpatient (REF) | payer MEDICAID, OTHER ==
[~2024-07-27] MED LIST changes: +ACET-897 PO; +ASPI81TA26 PO; +MAGN400T35 PO; +PARO20TA3 PO
[2024-07-27 13:59] LABS: HEMOGLOBIN A1c 5.4 % (4.0-6.0)
[2024-07-27 14:07] LABS: CHOLESTEROL RISK RATIO 5.07 (<5); HDL CHOLESTEROL 39.4 MG/DL (>40); MAGNESIUM LEVEL 1.9 MG/DL (1.8-2.4); NON-HDL-C 160.6 MG/DL
[2024-07-27 14:08] LABS: THYROID STIMULATING HORMONE 3.448 uIU/ML (0.55-4.78)
== END ==
LOC: M LAB REF 12:36
PROVIDERS: ATTEND Nurse Practitioner Family
DX: E66.811 Obesity, class 1 (principal); E83.42 Hypomagnesemia